=== PATIENT | male | born 1960 | race Caucasian/White ===

== ENCOUNTER 2019-11-02 06:37 | Day surgery (SDC) | payer BC ==
[2019-11-02] MEDS ORDERED: Propofol 200 MG/20 ML SDV IV ONE (06:38)
[2019-11-02] MEDS ORDERED: Lidocaine 2% 5 ML SDV INJECT ONE (06:38)
[2019-11-02] MEDS ORDERED: Midazolam 1 MG/ML 2 ML SDV IV ONE (06:38)
[2019-11-02] MEDS ORDERED: Sodium Chloride 0.9% 10 ML Syringe FLUSH PRN (06:45)
[2019-11-02] MEDS ORDERED: Lactated Ringers 1,000 ML IV SCH (06:45)
--- NOTE | 2019-11-02 08:37 | PCM.OPNOTE ---
- General Post-Op/Procedure Note Date of Surgery/Procedure: 11/02/19 Operative Procedure(s): egd with bx. colonoscopy with bx Findings: esophagitis gastritis fundic gland hyperplasia colon polyp Pre Op Diagnosis: hx of epigastric pain. hx of colon polyps Post-Op Diagnosis: esophagitis. gastritis. fundic gland hyperplasia. colon polyp Anesthesia Technique: [facility] [place] Primary Surgeon: Ever Anthony Anesthesia Provider: Frances Purcell Pathology: stomach distal esophagus colon Complications: None Condition: Good Free Text/Narrative:: see dictation
--- NOTE | 2019-11-02 13:30 | OR ---
DATE OF OPERATION: 11/02/2019 SURGEON: Ever Anthony MD PROCEDURE PERFORMED: Esophagogastroduodenoscopy with cold forceps biopsy and colonoscopy with cold forceps biopsy. PREOPERATIVE DIAGNOSIS: Personal history of epigastric abdominal pain and personal history of colon polyps. POSTOPERATIVE DIAGNOSES: Gastritis with hyperplastic fundic gland polyps and esophagitis and a polyp of the descending colon. INDICATIONS FOR PROCEDURE: This is a 59-year-old white male with the above- mentioned complaints. He was offered and accepted the above mentioned scopes. DESCRIPTION OF OPERATION: After an excellent IV sedation was administered, bite block was inserted. Flexible endoscope was passed without difficulty down the patient's esophagus into the stomach. The stomach was insufflated, scope passed through the pylorus to the second portion of the duodenum and slowly withdrawn. The following findings were noted: Duodenum was unremarkable. Stomach demonstrated some mild inflammation, especially in the area of the antrum as well as some fundic gland hyperplasia. Research Consultant biopsies were taken of the fundic gland hyperplasia as well as gastric mucosa and this was submitted in 1 container. GE junction measured approximately 40 cm. There was some erythema in the distal esophagus and biopsies were taken of this as well. Remainder of esophageal exam was unremarkable. The stomach was deflated and the scope was removed. Our attention was then turned to the colon. Digital rectal exam was performed. No marked abnormality was noted. Flexible colonoscope was inserted and advanced to the cecum. Prep excellent. Following findings were noted: Ascending colon, unremarkable. Transverse colon, unremarkable. Descending colon, a small 2 mm area that had the appearance of possible adenomatous tissue. This was biopsied and submitted in 1 container. Sigmoid and rectum were unremarkable. The colon was deflated as the scope was removed. The patient tolerated the procedure well and was taken to recovery room. Results will be sent to the patient by letter. /[id number] /MODL
== END 2019-11-02 09:21 | disposition home or self-care (01) ==
LOC: FB.SDS 06:37
PROVIDERS: ATTEND Surgery
DX: Z12.11 Encounter for screening for malignant neoplasm of colon (principal); K20.9 Esophagitis, unspecified; K29.50 Unspecified chronic gastritis without bleeding; K31.7 Polyp of stomach and duodenum; K63.5 Polyp of colon; Z86.010 Personal history of colon polyps; Z79.899 Other long term (current) drug therapy
CPT/HCPCS: 43239; 45380; 88305; 88342; J2001; J2250; J2704; J7120